=== PATIENT | male | born 1990 | race Caucasian/White ===

== ENCOUNTER 2020-06-04 10:31 | Emergency (ER) | payer BC ==
[~2020-06-04] VITALS: Ht 182.9 cm; Wt 122.5 kg
[2020-06-04] MEDS ORDERED: ALBUTEROL/IPRATROPIUM 3 ML NEB NEB ONE (11:00)
[2020-06-04] MEDS ORDERED: PREDNISONE 20 MG TAB PO NR (11:00)
== END 2020-06-04 12:32 | disposition home or self-care (01) ==
LOC: ER 11:08
DX: R06.02 Shortness of breath (principal); R05 Cough; J40 Bronchitis, not specified as acute or chronic; T59.811A Toxic effect of smoke, accidental (unintentional), initial encounter; J70.5 Respiratory conditions due to smoke inhalation; Y92.008 Other place in unspecified non-institutional (private) residence as the place of occurrence of the external cause
CPT/HCPCS: 71045; 99283; J7512